=== PATIENT | female | born 1935 | race Caucasian/White ===

== ENCOUNTER 2017-10-14 16:29 | Emergency (ER) | payer MEDICARE, MEDICAID ==
[~2017-10-14] VITALS: Wt 78.0 kg
[~2017-10-14 16:29] MED LIST: ADVAIR 250/501 EA INH; ALTOPREV20 MG PO; ASPIR-LOW81 MG PO; ATIVAN0.5 MG PO; BREO; CALCIUM CARBONA; CARAFATE1 G1 PO; CIPRO500 MG PO; CLONAZEPAM0.5 MG PO; COUMADIN0.5 M1 PO; COUMADIN3 M1 PO; Coumadin7.5 MG PO; DIAMOX125 MG PO; DULCOLAX10 MG PO; DULCOLAX5 MG PO; Duoneb 3ML 3 MG/3 ML INH; FLAGYL250 MG PO; FLORASTOR250 MG PO; FOSAMAX70 MG PO; K-Dur 20MEQ20 MEQ PO; LASIX40 MG PO; LISINOPRIL2.5 MG PO; Lopressor25 MG PO; METOPROLOL1 MG/ML IV; MILLIPRED5 MG PO; MIRALAX17 GM/DOSE PO; MOM30 M1 PO; MUCINEX600 MG PO; NIFEREX FORTE PO; NITROSTAT0.4 MG SL; PLAVIX75 MG PO; POTASSIUM20 MEQ PO; PROPAFENONE HC150 MG PO; PROPAFENONE HY150 MG PO; PROTONIX40 MG PO; SIMVASTATIN20 MG PO; SYNTHROID,LEVO50 MCG PO; SYNTHROID0.075 MG PO; TOPROL XL25 MG PO; TYLENOL500 MG PO; VANCOMYCIN250 MG/2.5 PO; VENTOLIN H0.09 MG/AC INH; VITAMIN D1000 IU PO; VITAMIN D31000 IU PO; WARFARIN SOD5 MG PO
[2017-10-14 17:42] LABS: BASO % 0.3 % (0.0-1.0); EOS # 0.1 10*3/uL (0.0-0.4); EOS % 1.6 % (1.0-4.0); HEMATOCRIT 32.1 % (37.0-47.0); LYMPH # 1.1 10*3/uL (1.3-4.4); LYMPH % 15.4 % (27.0-41.0); MEAN CELL VOLUME 94.7 fl (81.0-99.0); MEAN CORPUSCULAR HGB 26.5 pg (27.0-31.0); MEAN PLATELET VOLUME 9.5 fl (9.6-12.3); MONO # 0.6 10*3/uL (0.1-1.0); MONO % 8.7 % (3.0-9.0); NEUT # 5.1 10*3/uL (2.3-7.9); NEUT % 73.3 % (47.0-73.0); PLATELET COUNT AUTOMATED 257 10*3/uL (130-400); RED BLOOD COUNT 3.39 10*6/uL (4.10-5.10); RED CELL DISTRI WIDTH 14.7 % (0-14.5); WHITE BLOOD COUNT 6.9 10*3/uL (4.8-10.8)
[2017-10-14] MEDS ORDERED: WARFARIN SODIU2.5 MG PO (17:50)
[2017-10-14] MEDS ORDERED: WARFARIN SOD5 MG PO (17:50)
[2017-10-14 17:56] LABS: INTERNATIONAL NORM RATIO 2.1 (2.0-3.5)
[2017-10-14 17:58] LABS: ALBUMIN 3.1 gm/dl (3.1-4.5); ALKALINE PHOSPHATASE 72 U/L (45-117); BUN 17 mg/dl (7-24); CHLORIDE 105 mmol/L (98-107); CREATININE 0.58 mg/dL (0.55-1.02); POTASSIUM 4.4 mmol/L (3.5-5.1); SGOT/AST 11 IU/L (3-35); SGPT/ALT 12 U/L (12-78); SODIUM 144 mmol/L (136-145); TOTAL PROTEIN 7.5 gm/dL (6.4-8.2)
[2017-10-14] MEDS ORDERED: OCEAN104 ML NAS (19:08)
[2017-10-14] MEDS ORDERED: Bactroban Oint22 GM T (19:08)
== END 2017-10-14 19:20 | disposition home or self-care (01) ==
LOC: ED 16:29
PROVIDERS: Nurse Practitioner Family
DX: R04.0 Epistaxis (principal); Z79.899 Other long term (current) drug therapy; Z79.02 Long term (current) use of antithrombotics/antiplatelets

== ENCOUNTER 2018-08-28 19:28 | Inpatient (IN) | payer OTHER ==
[~2018-08-28] VITALS: Ht 152.4 cm; Wt 65.1 kg
--- NOTE | ~2018-08-28 | EKG ---
[place], [place] ELECTROCARDIOGRAM REPORT NAME: JAMEE MONTALVO UNIT #: [id number] ROOM: 506 DOCTOR: NAKUL DRAFT REPORT BIRTHDATE: [birth year] [facility] Test Date: 2018-08-28 Test Time: 19:41:10 Pat Name: JAMEE MONTALVO Department: Room: 506 Gender: F Greenhouse Or Nursery Transplanter: : 1935 Requested By: JERRY BARROS Order Number: [id number] Reading MD: Vinod Price MD Measurements Intervals [place] Rate: 74 P: 57 CO: 137 QRS: 51 QRSD: 82 T: 150 QT: 363 QTc: 403 Interpretive Statements Sinus rhythm Atrial premature complex Borderline repolarization abnormality Electronically Signed On 08-29-2018 14:47:08 PDT by Vinod Price MD CM:EKGRPT:ELECTROCARDIOGRAM REPORT [id number] JERRY MOTA DRAFT REPORT JERRY BARROS
--- NOTE | ~2018-08-28 | EKG ---
[place], [place] ELECTROCARDIOGRAM REPORT NAME: JAMEE MONTALVO UNIT #: [id number] ROOM: 506 DOCTOR: EPIPHANY DRAFT REPORT BIRTHDATE: [birth year] [facility] Test Date: 2018-08-30 Test Time: 14:24:15 Pat Name: JAMEE MONTALVO Department: Room: 506 1 Gender: F Appeals Assistant: : 1935 Requested By: ALEJANDRINA NEVAREZ Order Number: [id number] Reading MD: Alejandrina Nevarez MD Measurements Intervals [place] Rate: 68 P: 76 MI: 127 QRS: 41 QRSD: 91 T: 84 QT: 321 QTc: 342 Interpretive Statements Sinus rhythm Probable left atrial enlargement Nonspecific repol abnormality, lateral leads Compared to ECG 08/28/2018 19:41:10 Atrial premature complex(es) no longer present Electronically Signed On 08-30-2018 15:28:30 PDT by Alejandrina Nevarez MD CM:EKGRPT:ELECTROCARDIOGRAM REPORT [id number] ALEJANDRINA NEVAREZ MD EPIPHANY DRAFT REPORT ALEJANDRINA NEVAREZ MD
[~2018-08-28 19:28] MED LIST changes: +Bactroban Oint22 GM T; +OCEAN104 ML NAS; +WARFARIN SODIU2.5 MG PO
[2018-08-28 19:37] VITALS: BP 134/90
[2018-08-28 19:57] LABS: BASO % 0.2 % (0.0-1.0); EOS # 0.1 10*3/uL (0.0-0.4); EOS % 0.5 % (1.0-4.0); HEMATOCRIT 30.7 % (37.0-47.0); HEMOGLOBIN 8.7 g/dl (12.0-16.0); LYMPH # 1.1 10*3/uL (1.3-4.4); LYMPH % 9.5 % (27.0-41.0); MEAN CELL VOLUME 90.8 fl (81.0-99.0); MEAN CORPUSCULAR HGB 25.7 pg (27.0-31.0); MEAN CORPUSCULAR HGB CONC 28.3 g/dl (33.0-37.0); MEAN PLATELET VOLUME 11.2 fl (9.6-12.3); MONO # 0.7 10*3/uL (0.1-1.0); MONO % 5.8 % (3.0-9.0); NEUT # 9.5 10*3/uL (2.3-7.9); NEUT % 83.5 % (47.0-73.0); PLATELET COUNT AUTOMATED 274 10*3/uL (130-400); RED BLOOD COUNT 3.38 10*6/uL (4.10-5.10); RED CELL DISTRI WIDTH 15.2 % (0-14.5); WHITE BLOOD COUNT 11.4 10*3/uL (4.8-10.8)
[2018-08-28 20:36] LABS: ACT PARTIAL THROMBO TIME 30.1 SECONDS (20.0-32.1); INTERNATIONAL NORM RATIO 0.9 (2.0-3.5)
[2018-08-28 20:42] LABS: ALBUMIN 2.8 gm/dl (3.1-4.5); ALKALINE PHOSPHATASE 76 U/L (45-117); BUN 15 mg/dl (7-24); CHLORIDE 103 mmol/L (98-107); CREATININE 0.96 mg/dL (0.55-1.02); LIPASE 185 U/L (73-393); POTASSIUM 3.6 mmol/L (3.5-5.1); SGOT/AST 7 IU/L (3-35); SGPT/ALT 7 U/L (12-78); SODIUM 141 mmol/L (136-145); TOTAL PROTEIN 7.2 gm/dL (6.4-8.2)
[2018-08-28 20:43] LABS: TROPONIN I < 0.015 ng/ml (<0.045)
[2018-08-28 21:01] VITALS: BP 120/50
--- NOTE | 2018-08-28 21:18 | NUR ---
PT RESTING COMFORTABLY WITH FAMILY AT BEDSIDE.NO SIGNS DISTRESS NOTED.PT STATES FEELS BETTER AFTER BREATHING TX.02 SAT 97%3L NC.
[2018-08-28] MEDS ORDERED: ALENDRONATE SOD70 M1 PO (22:57)
[2018-08-28] MEDS ORDERED: XARE20MG PO (22:58)
[2018-08-28] MEDS ORDERED: LISINOPRIL20 MG PO (22:58)
[2018-08-28] MEDS ORDERED: DILTIAZEM 24HR120 MG PO (22:58)
[2018-08-28] MEDS ORDERED: LEVOTHYROXINE125 MCG PO (22:58)
[2018-08-28] MEDS ORDERED: SERTRALINE HYDR50 MG PO (22:59)
[2018-08-28] MEDS ORDERED: SLOW RELEASE I142 MG PO (22:59)
[2018-08-28] MEDS ORDERED: ADV 100/50 INH (23:00)
[2018-08-28] MEDS ORDERED: LASIX40 MG PO (23:00)
[2018-08-29] VITALS: BP 131/62
--- NOTE | 2018-08-29 00:05 | NUR ---
ROOM ASSIGNMENT OBTAINED FROM LEVERS LACE MACHINE OPERATOR.
--- NOTE | 2018-08-29 00:06 | NUR ---
AWAITING TAKING PT TO FLOOR UPON RETURN OF ER NURSE WHO IS ON THE FLOOR TRANSPORTING A PT.
[2018-08-29 00:30] VITALS: BP 149/85
--- NOTE | 2018-08-29 00:30 | NUR ---
A 82, admitted to 5E, under the services of ESDRAS Mullins MD with a diagnosis of COPD EXACERBATION. Chief complaint is SOB. Patient arrived via bed from ER. Monitor applied. Initial assessment completed. Vital signs taken and recorded. ESDRAS MULLINS MD notified of admission to the unit. Orders received. See assessment for past medical history, medications and allergies. Patient oriented to unit. Clothing/patient valuable form completed. [place]
--- NOTE | 2018-08-29 01:30 | NUR ---
PT. REQUESTING SOMETHING TO EAT. TOOK PATIENT A BOX LUNCH. PT. VOICES NO C/O AT THIS TIME. CALL LIGHT WITHIN REACH.
--- NOTE | 2018-08-29 06:00 | NUR ---
RESTING IN BED WITH EYES CLOSED. CALL LIGHT WITHIN REACH.
[2018-08-29 06:55] LABS: FREE T4 1.46 ng/dl (0.76-1.46); THYROID STIM HORMONE (HS) 1.22 uIU/ml (0.358-4.75)
[2018-08-29 07:31] LABS: VITAMIN D, 25-HYDROXY 46.5 ng/mL (30-100)
[2018-08-29 08:00] VITALS: BP 148/70
--- NOTE | 2018-08-29 08:30 | NUR ---
Alert and oriented x3. Lungs diminished with faint exp wheezes noted posteriorly. Harsh moist cough noted pt states it is productive at times. Denies chest pain. Sob reported with exertion, o2 dependent pt is on 3l currently here.
--- NOTE | 2018-08-29 09:00 | NUR ---
Claim Specialist in to talk to patient. Patient states lives at home with her son. There is a ramp. There are 0 steps in the home. Physician: Dr. Crockett [facility]: [facility]: has had in the past but not currently and doesn't remember the name of the company Patient's level of ADLs: MINIMAL ASSIST Patient has working utilities: yes DME: BSC, walker, cane, shower chair, O2 @ 4L nc, portable O2 tanks, nebulizer, O2 supplier [facility] Follow-up physician's appointment after d/c: she prefers to make her own follow up appt after discharge Does patient want to access PORTAL?: no Discharge plan discussed with patient. She lives at home with her son. She is independent in her ADLs and uses a walker or a cane for ambulation. Discussed home health care services and she denies any home needs at this time. When medically stable she will be discharged to home. Daughter will transport on discharge. NORMAN AMARAL
[2018-08-29 12:00] VITALS: BP 124/58
[2018-08-29 16:00] VITALS: BP 142/81
[2018-08-29 20:00] VITALS: BP 131/62
--- NOTE | 2018-08-29 20:15 | NUR ---
PT SITTING UP IN BED. RESP-EASY AND REGULAR. OXYGEN IN USE. C/O BILATERAL HAND PAIN, RATE CORIE 4 OR 5 ON PAIN SCALE 0-10. MEDICATED TYLENOL TWO TAB PO PER PRN ORDER, SEE EMAR. CALL LIGHT IN REACH. SEE SHIFT ASSESSMENT.
--- NOTE | 2018-08-29 22:00 | NUR ---
TOLERATED ROUTINE IV MEDICATION. NO C/O AT THIS TIME. STATES PAIN MEDICATION HELPED. CALL LIGHT IN REACH.
[2018-08-30] VITALS: BP 122/51
--- NOTE | 2018-08-30 00:10 | NUR ---
SLEEPING IN BED ON RIGHT SIDE, AWAKENS EASILY. RESP-EASY AND REGULAR. OXYGEN IN USE. NO C/O AT THIS TIME. CALL LIGHT IN REACH. SEE SHIFT ASSESSMENT.
--- NOTE | 2018-08-30 04:00 | NUR ---
SLEEPING IN BED. RESP-EASY AND REGULAR. OXYGEN IN USE. CALL LIGHT IN REACH.
--- NOTE | 2018-08-30 06:00 | NUR ---
SLEEPING IN BED. RESP-EASY AND REGULAR. OXYGEN IN USE. CALL LIGHT IN REACH.
[2018-08-30 06:56] LABS: BASO % 0.1 % (0.0-1.0); HEMATOCRIT 27.6 % (37.0-47.0); HEMOGLOBIN 7.7 g/dl (12.0-16.0); LYMPH # 0.7 10*3/uL (1.3-4.4); LYMPH % 5.9 % (27.0-41.0); MEAN CELL VOLUME 90.5 fl (81.0-99.0); MEAN CORPUSCULAR HGB 25.2 pg (27.0-31.0); MEAN CORPUSCULAR HGB CONC 27.9 g/dl (33.0-37.0); MEAN PLATELET VOLUME 9.8 fl (9.6-12.3); MONO # 0.5 10*3/uL (0.1-1.0); MONO % 3.9 % (3.0-9.0); NEUT # 10.3 10*3/uL (2.3-7.9); NEUT % 89.3 % (47.0-73.0); PLATELET COUNT AUTOMATED 345 10*3/uL (130-400); RED BLOOD COUNT 3.05 10*6/uL (4.10-5.10); RED CELL DISTRI WIDTH 14.7 % (0-14.5); WHITE BLOOD COUNT 11.5 10*3/uL (4.8-10.8)
[2018-08-30 07:30] LABS: CHLORIDE 104 mmol/L (98-107); POTASSIUM 4.2 mmol/L (3.5-5.1); SODIUM 141 mmol/L (136-145)
[2018-08-30 07:41] LABS: ALBUMIN 2.6 gm/dl (3.1-4.5); ALKALINE PHOSPHATASE 67 U/L (45-117); BUN 19 mg/dl (7-24); SGOT/AST 8 IU/L (3-35); TOTAL PROTEIN 6.6 gm/dL (6.4-8.2)
[2018-08-30 07:43] LABS: SGPT/ALT < 6 U/L (12-78)
[2018-08-30 08:00] VITALS: BP 140/80
--- NOTE | 2018-08-30 08:18 | NUR ---
24 HR CHART CHECK COMPLETE
[2018-08-30 12:00] VITALS: BP 143/80
--- NOTE | 2018-08-30 13:33 | NUR ---
PT NOW AFIB PER STOKER INSTALLATION MECHANIC. PT DOES HAVE HISTORY OF AFIB. DR SHARP NOTIFIED. ORDERS RECEIVED
--- NOTE | 2018-08-30 13:35 | NUR ---
I SPOKE TO PT AND ASKED WHO HER QUILT STUFFER IS. SHE STATED SHE "WANTS TO SEE DR SPAULDING."
--- NOTE | 2018-08-30 13:50 | NUR ---
CALLED [facility] ANSWERING SERVICE REGARDING NEW PT CONSULT. WAITING PAINTING AND COATING WORKER BACK
--- NOTE | 2018-08-30 14:13 | NUR ---
DR NEVAREZ IN TO SEE PT. ORDERS RECEIVED
--- NOTE | 2018-08-30 14:45 | NUR ---
PT NOW IN SINUS RHYTHM. PER DR NEVAREZ HOLD DIGOXIN. ADMINISTER IF PT GOES BACK INTO AFIB.
[2018-08-30 16:00] VITALS: BP 142/56
[2018-08-30 20:00] VITALS: BP 148/64
--- NOTE | 2018-08-30 23:26 | NUR ---
CALLED TO PTs ROOM FOR C/O NELSON AND ARTHRITIC HAND PAIN. TYLENOL GIVEN. SEE MAR. WILL MONITOR. CALL LIGHT IN REACH.
[2018-08-31] VITALS: BP 142/75
--- NOTE | 2018-08-31 01:36 | NUR ---
SLEEPING. TYLENOL SEEMS TO BE EFFECTIVE FOR COMPLAINTS. NO SXS OF DISTRESS. RESPERS EASY/REGULAR ON 3L NC. CALL LIGHT IN REACH.
--- NOTE | 2018-08-31 04:18 | NUR ---
24 HR CHART CHECK COMPLETED
[2018-08-31 06:57] LABS: BASO % 0.1 % (0.0-1.0); HEMATOCRIT 30.8 % (37.0-47.0); HEMOGLOBIN 8.5 g/dl (12.0-16.0); LYMPH # 0.8 10*3/uL (1.3-4.4); LYMPH % 6.4 % (27.0-41.0); MEAN CELL VOLUME 91.4 fl (81.0-99.0); MEAN CORPUSCULAR HGB 25.2 pg (27.0-31.0); MEAN CORPUSCULAR HGB CONC 27.6 g/dl (33.0-37.0); MEAN PLATELET VOLUME 9.7 fl (9.6-12.3); MONO # 0.5 10*3/uL (0.1-1.0); MONO % 3.8 % (3.0-9.0); NEUT # 10.7 10*3/uL (2.3-7.9); NEUT % 87.3 % (47.0-73.0); PLATELET COUNT AUTOMATED 416 10*3/uL (130-400); RED BLOOD COUNT 3.37 10*6/uL (4.10-5.10); RED CELL DISTRI WIDTH 14.8 % (0-14.5); WHITE BLOOD COUNT 12.2 10*3/uL (4.8-10.8)
[2018-08-31 07:23] LABS: CHLORIDE 102 mmol/L (98-107); POTASSIUM 4.5 mmol/L (3.5-5.1); SODIUM 140 mmol/L (136-145)
[2018-08-31 07:27] LABS: BUN 27 mg/dl (7-24); CREATININE 0.71 mg/dL (0.55-1.02)
[2018-08-31 08:00] VITALS: BP 138/70
--- NOTE | 2018-08-31 10:05 | NUR ---
PT MEDICATED WITH PRN TYLENOL FOR C/O A HEADACHE AND ARTHRITIC PAIN IN HER HANDS. WILL MONITOR.
--- NOTE | 2018-08-31 11:05 | NUR ---
PRN TYLENOL EFFECTIVE PER PT.
[2018-08-31 12:00] VITALS: BP 151/73
[2018-08-31 16:00] VITALS: BP 134/62
[2018-08-31 20:00] VITALS: BP 132/56
--- NOTE | 2018-08-31 20:10 | NUR ---
PT SITTING UP IN BED. RESP-EASY AND REGULAR. NO C/O AT THIS TIME. OXYGEN IN USE. CALL LIGHT IN REACH. SEE SHIFT ASSESSMENT.
[2018-09-01] VITALS: BP 158/78
--- NOTE | 2018-09-01 00:20 | NUR ---
PT RESTING IN BED WITH EYES CLOSED. RESP-EASY AND REGULAR. OXYGEN IN USE. CALL LIGHT IN REACH. SEE SHIFT ASSESSMENT.
--- NOTE | 2018-09-01 06:00 | NUR ---
RESTING IN BED. NO C/O AT THIS TIME. OXYGEN IN USE. CALL LIGHT IN REACH.
[2018-09-01 06:57] LABS: BASO % 0.1 % (0.0-1.0); HEMATOCRIT 28.9 % (37.0-47.0); HEMOGLOBIN 8.1 g/dl (12.0-16.0); LYMPH # 0.5 10*3/uL (1.3-4.4); LYMPH % 5.9 % (27.0-41.0); MEAN CELL VOLUME 90.9 fl (81.0-99.0); MEAN CORPUSCULAR HGB 25.5 pg (27.0-31.0); MEAN PLATELET VOLUME 9.9 fl (9.6-12.3); MONO # 0.3 10*3/uL (0.1-1.0); MONO % 3.8 % (3.0-9.0); NEUT # 7.4 10*3/uL (2.3-7.9); NEUT % 87.4 % (47.0-73.0); PLATELET COUNT AUTOMATED 346 10*3/uL (130-400); RED BLOOD COUNT 3.18 10*6/uL (4.10-5.10); RED CELL DISTRI WIDTH 14.8 % (0-14.5); WHITE BLOOD COUNT 8.5 10*3/uL (4.8-10.8)
[2018-09-01 07:15] LABS: BUN 26 mg/dl (7-24); CHLORIDE 103 mmol/L (98-107); CREATININE 0.64 mg/dL (0.55-1.02); PHOSPHOROUS 2.7 mg/dL (2.5-4.9); POTASSIUM 4.3 mmol/L (3.5-5.1); SODIUM 141 mmol/L (136-145)
--- NOTE | 2018-09-01 09:00 | NUR ---
Fireproof Door Assembler in to see patient. No new needs or request at this time. She denies any home needs at this time. When medically stable she will be discharged to home.
[2018-09-01 12:55] VITALS: BP 154/66
[2018-09-01 16:00] VITALS: BP 153/66
[2018-09-01 20:00] VITALS: BP 154/70
--- NOTE | 2018-09-01 21:00 | NUR ---
PT SITTING UP IN BED. RESP-EASY AND REGULAR. OXYGEN IN USE. NO C/O AT THIS TIME. CALL LIGHT IN REACH. SEE SHIFT ASSESSMENT.
--- NOTE | 2018-09-01 22:40 | NUR ---
PT AMBULATORY TO BATHROOM AND BACK TO BED. C/O HEADACHE RATES PAIN 5 ON PAIN SCALE 0-10. MEDICATED WITH TYLENOL PO PER PRN ORDER, SEE EMAR. CALL LIGHT IN REACH.
--- NOTE | 2018-09-01 22:40 | NUR ---
MEDICATED WITH TYLENOL PO PER PRN ORDER, SEE EMAR. FOR C/O HEADACHE, RATES PAIN 5 ON PAIN SCALE 0-10. CALL LIGHT IN REACH.
[2018-09-02] VITALS: BP 152/72
--- NOTE | 2018-09-02 00:15 | NUR ---
PT RESTING IN BED. RESP-EASY AND REGULAR. OXYGEN IN USE. CALL LIGHT IN REACH. SEE SHIFT ASSESSMENT.
--- NOTE | 2018-09-02 00:20 | NUR ---
RESTING IN BED. RESP-EASY AND REGULAR. NO C/O AT THIS TIME. CALL LIGHT IN REACH. SEE SHIFT ASSESSMENT.
--- NOTE | 2018-09-02 06:00 | NUR ---
SLEEPING IN BED. RESP-EASY AND REGULAR. CALL LIGHT IN REACH.
[2018-09-02 06:41] LABS: HEMATOCRIT 28.5 % (37.0-47.0); HEMOGLOBIN 8.1 g/dl (12.0-16.0); MEAN CELL VOLUME 90.5 fl (81.0-99.0); MEAN CORPUSCULAR HGB 25.7 pg (27.0-31.0); MEAN CORPUSCULAR HGB CONC 28.4 g/dl (33.0-37.0); MEAN PLATELET VOLUME 9.8 fl (9.6-12.3); NUCLEATED RED BLOOD CELL 0.2 % (0.0-0.0); PLATELET COUNT AUTOMATED 326 10*3/uL (130-400); RED BLOOD COUNT 3.15 10*6/uL (4.10-5.10); WHITE BLOOD COUNT 8.5 10*3/uL (4.8-10.8)
[2018-09-02 07:02] LABS: BUN 27 mg/dl (7-24); CHLORIDE 102 mmol/L (98-107); CREATININE 0.61 mg/dL (0.55-1.02); POTASSIUM 4.5 mmol/L (3.5-5.1); SODIUM 140 mmol/L (136-145)
[2018-09-02 07:14] LABS: TOTAL CELLS COUNTED 100 #CELLS
[2018-09-02 07:15] LABS: PLATELET SUFFICIENCY NORMAL (NORMAL); POLYCHROMASIA SLIGHT; SCHISTOCYTES FEW
[2018-09-02 08:00] VITALS: BP 162/58
--- NOTE | 2018-09-02 09:06 | NUR ---
PT RESTING IN BED/ NO DISTRESS NOTED. WILL MONITOR
[2018-09-02 12:00] VITALS: BP 154/59
--- NOTE | 2018-09-02 18:18 | NUR ---
DR. BERGER NOTIFIED OF MANUAL BP OF 176/72. PT'S HR IS 68 AT THIS TIME. ORDERS FOR 10MG IV HYDRALAZINE RECIEVED. WILL CONTINUE TO MONITOR AND REASSESS PT
[2018-09-02 18:20] VITALS: BP 176/72
[2018-09-02 19:22] VITALS: BP 154/70
[2018-09-02 20:00] VITALS: BP 184/60
--- NOTE | 2018-09-02 22:24 | NUR ---
DR. FISHER NOTIFIED OF BLOOD PRESSURE OF 178/68. WILL RECHECK BP AT MIDNIGHT ORDERED BY . NO OTHER ORDERS AT THIS TIME.
--- NOTE | 2018-09-02 23:18 | NUR ---
24 HR chart check completed.
[2018-09-03] VITALS (7 sets, daily range): BP systolic 124–182; BP diastolic 55–82
--- NOTE | 2018-09-03 06:01 | NUR ---
DR. CINTRON NOTIFIED OF REPEAT BLOOD PRESSURE OF 148/60. NO NEW ORDERS AT THIS TIME.
[2018-09-03 06:34] LABS: HEMATOCRIT 30.8 % (37.0-47.0); HEMOGLOBIN 8.6 g/dl (12.0-16.0); MEAN CELL VOLUME 90.3 fl (81.0-99.0); MEAN CORPUSCULAR HGB 25.2 pg (27.0-31.0); MEAN CORPUSCULAR HGB CONC 27.9 g/dl (33.0-37.0); MEAN PLATELET VOLUME 9.8 fl (9.6-12.3); NUCLEATED RED BLOOD CELL 0.1 10*3/uL (0.0-0.0); NUCLEATED RED BLOOD CELL 0.5 % (0.0-0.0); PLATELET COUNT AUTOMATED 378 10*3/uL (130-400); RED BLOOD COUNT 3.41 10*6/uL (4.10-5.10); RED CELL DISTRI WIDTH 15.1 % (0-14.5); WHITE BLOOD COUNT 10.6 10*3/uL (4.8-10.8)
[2018-09-03 06:41] LABS: BUN 24 mg/dl (7-24); CHLORIDE 103 mmol/L (98-107); POTASSIUM 4.7 mmol/L (3.5-5.1); SODIUM 141 mmol/L (136-145)
[2018-09-03 07:25] LABS: PLATELET SUFFICIENCY NORMAL (NORMAL); POLYCHROMASIA SLIGHT; TOTAL CELLS COUNTED 100 #CELLS
--- NOTE | 2018-09-03 20:00 | NUR ---
AAOX3 SITTING UP IN BED. 02 INTACT; PT. VOICES NO C/O AT THIS TIME. NO DISTRESS NOTED. CALL LIGHT WITHIN REACH.
--- NOTE | 2018-09-03 21:30 | NUR ---
UP TO BATHROOM INDEPENDENTLY WITH 02 INTACT. PT. VERY DYSPNIC WITH EXERTION. BACK TO BED; 02 REMAINS INTACT. WILL CONTINUE TO MONITOR. CALL LIGHT WITHIN REACH.
[2018-09-04] VITALS: BP 133/66
--- NOTE | 2018-09-04 04:00 | NUR ---
RESTING IN BED WITH EYES CLOSED. CALL LIGHT WITHIN REACH.
[2018-09-04 06:27] LABS: HEMATOCRIT 28.9 % (37.0-47.0); HEMOGLOBIN 8.1 g/dl (12.0-16.0); MEAN CELL VOLUME 90.3 fl (81.0-99.0); MEAN CORPUSCULAR HGB 25.3 pg (27.0-31.0); MEAN PLATELET VOLUME 9.8 fl (9.6-12.3); NUCLEATED RED BLOOD CELL 0.1 % (0.0-0.0); PLATELET COUNT AUTOMATED 373 10*3/uL (130-400); RED CELL DISTRI WIDTH 15.5 % (0-14.5); WHITE BLOOD COUNT 13.7 10*3/uL (4.8-10.8)
[2018-09-04 07:13] LABS: PLATELET SUFFICIENCY NORMAL (NORMAL); TOTAL CELLS COUNTED 100 #CELLS
[2018-09-04 07:14] LABS: POLYCHROMASIA SLIGHT
--- NOTE | 2018-09-04 07:30 | NUR ---
ASSUMED CARE FOR PT FROM DECK CADET RN. PT IS RESTING IN BED AT THIS TIME AND DENIES ANY NEEDS. BED LOCKED AND IN THE LOWEST POSITION, CALL LIGHT WITHIN REACH. WILL CONTINUE TO MONITOR PT.
[2018-09-04 09:50] VITALS: BP 134/58
--- NOTE | 2018-09-04 10:52 | NUR ---
Occupational Therapy evaluation completed on the 5th floor with full eval to follow. Low complexity level. Eval only. Precautions: IV site, o2 dependent. Patient reports living at home with son. Independent with ADLs. Recommend return home with son. Thank you for this referral, Celine Taylor OTR/L
--- NOTE | 2018-09-04 11:00 | NUR ---
PHYSICAL THERAPY Patient evaluated on 5, full evaluation to follow. D/C PT after evaluation, patient is (I) with functional mobility- patient agrees. MAy require home health RN for home. PAtient is low complexity via chart review, tests and evaluation: [id number]. Thank you for this referral. Zohra Nugent,PT
[2018-09-04 12:00] VITALS: BP 135/54
[2018-09-04 16:00] VITALS: BP 157/56
[2018-09-04 17:01] VITALS: BP 150/58
--- NOTE | 2018-09-04 19:42 | NUR ---
24 HOUR CHART CHECK COMPLETE.
[2018-09-04 20:00] VITALS: BP 130/56; BP 135/48
[2018-09-05] VITALS: BP 160/59
--- NOTE | 2018-09-05 02:30 | NUR ---
24 HR chart check completed.
[2018-09-05 08:00] VITALS: BP 140/68
--- NOTE | 2018-09-05 09:00 | NUR ---
Gr[employer] 1 Th[employer] 6 Visiting Teacher in to see patient. No new needs or request at this time. She denies any home needs at this time. When medically stable she will be discharged to home.
[2018-09-05 12:00] VITALS: BP 152/58
[2018-09-05] MEDS ORDERED: FEOSOL325 MG PO (13:11)
--- NOTE | 2018-09-05 15:20 | NUR ---
Discharge instructions reviewed with patient/family. Patient receptive and verbalizes understanding. Follow-up care arranged. Written instructions given to patient/family. LOUIS JOSHI
== END 2018-09-05 15:37 | disposition home or self-care (01) | DRG 190 ==
LOC: ED 19:28 → 5E 22:18 → EDHOLD 22:18 → 5E 23:58
PROVIDERS: Family Medicine; Internal Medicine; Internal Medicine Nephrology; Nurse Practitioner Family; ADMIT Internal Medicine
DX: J44.1 Chronic obstructive pulmonary disease with (acute) exacerbation (principal); J18.1 Lobar pneumonia, unspecified organism; K92.2 Gastrointestinal hemorrhage, unspecified; J44.0 Chronic obstructive pulmonary disease with (acute) lower respiratory infection; I10 Essential (primary) hypertension; E03.9 Hypothyroidism, unspecified; D50.9 Iron deficiency anemia, unspecified; R73.9 Hyperglycemia, unspecified; I48.0 Paroxysmal atrial fibrillation; I25.10 Atherosclerotic heart disease of native coronary artery without angina pectoris; D72.829 Elevated white blood cell count, unspecified; R19.7 Diarrhea, unspecified; Z99.81 Dependence on supplemental oxygen; Z79.899 Other long term (current) drug therapy; Z79.01 Long term (current) use of anticoagulants; Z87.01 Personal history of pneumonia (recurrent); Z87.440 Personal history of urinary (tract) infections; Z90.710 Acquired absence of both cervix and uterus; Z80.8 Family history of malignant neoplasm of other organs or systems; Z95.5 Presence of coronary angioplasty implant and graft; Z87.891 Personal history of nicotine dependence; Z92.89 Personal history of other medical treatment

== ENCOUNTER 2018-12-02 15:10 | Emergency (ER) | payer BC, MEDICARE ==
[~2018-12-02] VITALS: Ht 152.4 cm; Wt 68.5 kg
[~2018-12-02 15:10] MED LIST changes: +ADV 100/50 INH; +ALENDRONATE SOD70 M1 PO; +DILTIAZEM 24HR120 MG PO; +FEOSOL325 MG PO; +LEVOTHYROXINE125 MCG PO; +LISINOPRIL20 MG PO; +SERTRALINE HYDR50 MG PO; +SLOW RELEASE I142 MG PO; +XARE20MG PO
[2018-12-02] MEDS ORDERED: CEPHALEXIN500 M1 PO (15:55)
[2018-12-02] MEDS ORDERED: ANTIBIOTIC28.4 GM T (15:55)
[2019-01-05] MEDS ORDERED: PROAIR HFA8.5 GM INH (08:31)
[2019-01-05] MEDS ORDERED: NATURE'S BLEND F1 MG PO (08:35)
[2019-01-05] MEDS ORDERED: WIXELA 250-501 EACH INH (08:35)
== END 2018-12-02 16:06 | disposition home or self-care (01) ==
LOC: ED 15:10
DX: S51.012A Laceration without foreign body of left elbow, initial encounter (principal); J44.9 Chronic obstructive pulmonary disease, unspecified; I25.10 Atherosclerotic heart disease of native coronary artery without angina pectoris; I48.91 Unspecified atrial fibrillation; Z99.81 Dependence on supplemental oxygen; Z79.899 Other long term (current) drug therapy; Z87.891 Personal history of nicotine dependence; W01.0XXA Fall on same level from slipping, tripping and stumbling without subsequent striking against object, initial encounter; Y93.89 Activity, other specified; Y92.89 Other specified places as the place of occurrence of the external cause; Y99.8 Other external cause status

== ENCOUNTER 2021-01-04 15:31 | Inpatient (IN) | payer OTHER ==
[~2021-01-04] VITALS: Ht 177.8 cm; Wt 59.0 kg
[~2021-01-04 15:31] MED LIST changes: +ANTIBIOTIC28.4 GM T; +CEPHALEXIN500 M1 PO; +NATURE'S BLEND F1 MG PO; +PROAIR HFA8.5 GM INH; +WIXELA 250-501 EACH INH
[2021-01-04 15:39] VITALS: BP 156/99
[2021-01-04 16:57] LABS: BASO % 0.4 % (0.0-1.0); EOS % 0.6 % (1.0-4.0); HEMATOCRIT 27.5 % (37.0-47.0); LYMPH # 0.7 10*3/uL (1.3-4.4); LYMPH % 12.6 % (27.0-41.0); MEAN CELL VOLUME 92.6 fl (81.0-99.0); MEAN CORPUSCULAR HGB 23.6 pg (27.0-31.0); MEAN CORPUSCULAR HGB CONC 25.5 g/dl (33.0-37.0); MEAN PLATELET VOLUME 10.5 fl (9.6-12.3); MONO # 0.7 10*3/uL (0.1-1.0); MONO % 12.8 % (3.0-9.0); NEUT # 3.9 10*3/uL (2.3-7.9); NEUT % 72.7 % (47.0-73.0); PLATELET COUNT AUTOMATED 221 10*3/uL (130-400); RED BLOOD COUNT 2.97 10*6/uL (4.10-5.10); RED CELL DISTRI WIDTH 15.5 % (0-14.5); WHITE BLOOD COUNT 5.4 10*3/uL (4.8-10.8)
[2021-01-04 17:12] LABS: ALBUMIN 2.8 gm/dl (3.1-4.5); ALKALINE PHOSPHATASE 78 U/L (45-117); BUN 21 mg/dl (7-24); CHLORIDE 94 mmol/L (98-107); CREATININE 0.54 mg/dL (0.55-1.02); POTASSIUM 4.7 mmol/L (3.5-5.1); SGOT/AST 13 IU/L (3-35); SGPT/ALT 11 U/L (12-78); SODIUM 140 mmol/L (136-145); TOTAL PROTEIN 7.4 gm/dL (6.4-8.2)
[2021-01-04 17:21] LABS: TROPONIN I < 0.015 ng/ml (<0.045)
[2021-01-04 17:48] LABS: IRON 19 ug/dL (50-170); TOTAL IRON BINDING CAPACITY 325 ug/dl (250-450)
[2021-01-04 19:34] VITALS: BP 133/48
[2021-01-04 22:10] LABS: BILIRUBIN Negative (Negative); BLOOD Negative (Negative); CLARITY Clear (Clear); COLOR Yellow (Yellow); GLUCOSE Negative (Negative); KETONE Negative (Negative); LEUKO ESTERASE Negative (Negative); NITRITE Negative (Negative); UROBILINOGEN 0.2 E.U./dl (0.0-1.0)
[2021-01-05 05:59] LABS: ALBUMIN 2.8 gm/dl (3.1-4.5); BUN 17 mg/dl (7-24); CHLORIDE 96 mmol/L (98-107); CREATININE 0.55 mg/dL (0.55-1.02); POTASSIUM 4.7 mmol/L (3.5-5.1); SGOT/AST 16 IU/L (3-35); SGPT/ALT 13 U/L (12-78); SODIUM 137 mmol/L (136-145); TOTAL PROTEIN 7.6 gm/dL (6.4-8.2)
[2021-01-05 06:00] LABS: ALKALINE PHOSPHATASE 80 U/L (45-117)
[2021-01-05 06:13] LABS: HEMATOCRIT 28.1 % (37.0-47.0); MEAN CELL VOLUME 90.1 fl (81.0-99.0); MEAN CORPUSCULAR HGB 23.1 pg (27.0-31.0); MEAN CORPUSCULAR HGB CONC 25.6 g/dl (33.0-37.0); MEAN PLATELET VOLUME 11.4 fl (9.6-12.3); PLATELET COUNT AUTOMATED 249 10*3/uL (130-400); RED BLOOD COUNT 3.12 10*6/uL (4.10-5.10); RED CELL DISTRI WIDTH 15.8 % (0-14.5); WHITE BLOOD COUNT 5.3 10*3/uL (4.8-10.8)
[2021-01-05 06:38] LABS: PLATELET SUFFICIENCY NORMAL (NORMAL); POLYCHROMASIA SLIGHT; STOMATOCYTE FEW; TARGET CELLS FEW; TOTAL CELLS COUNTED 100 #CELLS
[2021-01-05 07:09] LABS: ABG BASE EXCESS 14.5 mmol/L (-2.0-2.0); ARTERIAL BLOOD GAS PH 7.413 (7.35-7.45); ARTERIAL BLOOD GAS PO2 105.9 (80-90)
[2021-01-05 08:00] VITALS: BP 121/63
[2021-01-05 10:14] VITALS: BP 133/60
[2021-01-05 15:55] VITALS: BP 154/72
[2021-01-05 23:54] VITALS: BP 143/54
[2021-01-06 06:31] LABS: MEAN CELL VOLUME 88.3 fl (81.0-99.0); MEAN CORPUSCULAR HGB 23.3 pg (27.0-31.0); MEAN CORPUSCULAR HGB CONC 26.4 g/dl (33.0-37.0); MEAN PLATELET VOLUME 10.6 fl (9.6-12.3); PLATELET COUNT AUTOMATED 241 10*3/uL (130-400); RED BLOOD COUNT 3.17 10*6/uL (4.10-5.10); RED CELL DISTRI WIDTH 15.9 % (0-14.5); RETICULOCYTE % 3.39 % (0.50-2.50); WHITE BLOOD COUNT 5.1 10*3/uL (4.8-10.8)
[2021-01-06 06:57] LABS: ACT PARTIAL THROMBO TIME 29.6 SECONDS (20.0-32.1)
[2021-01-06 06:59] LABS: IRON 182 ug/dL (50-170); LDH 152 U/L (84-246); TOTAL IRON BINDING CAPACITY 337 ug/dl (250-450)
[2021-01-06 07:02] LABS: ALBUMIN 2.7 gm/dl (3.1-4.5); ALKALINE PHOSPHATASE 71 U/L (45-117); BUN 15 mg/dl (7-24); CHLORIDE 99 mmol/L (98-107); CHOLESTEROL 135 mg/dL (<200); CREATININE 0.51 mg/dL (0.55-1.02); POTASSIUM 3.8 mmol/L (3.5-5.1); SGOT/AST 16 IU/L (3-35); SGPT/ALT 13 U/L (12-78); SODIUM 141 mmol/L (136-145); TOTAL PROTEIN 7.2 gm/dL (6.4-8.2); TRIGLYCERIDES 83 mg/dl (<150)
[2021-01-06 07:10] LABS: LDL CHOLESTEROL 54 mg/dL (9-159)
[2021-01-06 07:30] LABS: VITAMIN D, 25-HYDROXY 33.5 ng/mL (30-100)
[2021-01-06 08:00] VITALS: BP 137/42
[2021-01-06 08:02] LABS: TOTAL CELLS COUNTED 100 #CELLS
[2021-01-06 08:04] LABS: PLATELET SUFFICIENCY NORMAL (NORMAL); POLYCHROMASIA SLIGHT; SCHISTOCYTES FEW; TARGET CELLS FEW
[2021-01-06 08:05] LABS: STOMATOCYTE FEW
[2021-01-06] MEDS ORDERED: VITAMIN B1250 MCG PO (13:19)
[2021-01-06] MEDS ORDERED: VITAMIN D3125 MC1 PO (13:20)
[2021-01-06] MEDS ORDERED: LASIX40 MG PO (13:21)
[2021-01-06] MEDS ORDERED: GABAPENTIN100 M2 PO (13:21)
[2021-01-07 02:06] LABS: TOTAL PROTEIN, SERUM 6.7 g/dL (6.0-8.5)
[2021-01-09 15:06] LABS: A/G RATIO 0.9 (0.7-1.7); ALBUMIN 3.1 g/dL (2.9-4.4); ALPHA-1-GLOBULIN 0.3 g/dL (0.0-0.4); ALPHA-2-GLOBULIN 0.8 g/dL (0.4-1.0); BETA GLOBULIN 1.1 g/dL (0.7-1.3); GAMMA GLOBULIN 1.4 g/dL (0.4-1.8); GLOBULIN, TOTAL 3.6 g/dL (2.2-3.9); M-SPIKE Comment: g/dL (Not Observed)
== END 2021-01-05 22:54 | DRG 71 ==
LOC: ED 15:31 → 3N 17:37 → EDHOLD 17:37 → 3N 01-05 21:44 → EDHOLD 01-05 22:54
PROVIDERS: Emergency Medicine; Internal Medicine Hematology & Oncology; Psychiatry & Neurology Psychiatry; Student in an Organized Health Care Education/Training Program; ADMIT Internal Medicine; ATTEND Internal Medicine
DX: G93.40 Encephalopathy, unspecified (principal); D62 Acute posthemorrhagic anemia; L40.9 Psoriasis, unspecified; E03.9 Hypothyroidism, unspecified; I10 Essential (primary) hypertension; Z20.822 Contact with and (suspected) exposure to COVID-19; F03.90 Unspecified dementia, unspecified severity, without behavioral disturbance, psychotic disturbance, mood disturbance, and anxiety; F32.A Depression, unspecified; J44.9 Chronic obstructive pulmonary disease, unspecified; Z95.5 Presence of coronary angioplasty implant and graft; Z87.891 Personal history of nicotine dependence; Z79.51 Long term (current) use of inhaled steroids; Z79.899 Other long term (current) drug therapy

== ENCOUNTER 2021-01-05 22:55 | Inpatient (IN) | payer OTHER ==
[~2021-01-05] VITALS: Ht 152.4 cm; Wt 58.1 kg
[2021-01-06] MEDS ORDERED: VITAMIN B1250 MCG PO (13:19)
[2021-01-06] MEDS ORDERED: VITAMIN D3125 MC1 PO (13:20)
[2021-01-06] MEDS ORDERED: LASIX40 MG PO (13:21)
[2021-01-06] MEDS ORDERED: GABAPENTIN100 M2 PO (13:21)
[2021-01-06 15:30] VITALS: BP 143/54
[2021-01-06 20:00] VITALS: BP 127/69
[2021-01-07 08:00] VITALS: BP 144/73
[2021-01-07 20:20] VITALS: BP 114/48
[2021-01-08 08:00] VITALS: BP 117/64
[2021-01-08 20:00] VITALS: BP 111/54
[2021-01-09 07:05] LABS: HEMATOCRIT 25.7 % (37.0-47.0); MEAN CELL VOLUME 94.8 fl (81.0-99.0); MEAN CORPUSCULAR HGB CONC 25.3 g/dl (33.0-37.0); MEAN PLATELET VOLUME 10.7 fl (9.6-12.3); PLATELET COUNT AUTOMATED 178 10*3/uL (130-400); RED BLOOD COUNT 2.71 10*6/uL (4.10-5.10); RED CELL DISTRI WIDTH 16.7 % (0-14.5); WHITE BLOOD COUNT 5.3 10*3/uL (4.8-10.8)
[2021-01-09 08:00] VITALS: BP 112/53
[2021-01-09 08:38] LABS: BASOPHILS 1 % (0-1); TOTAL CELLS COUNTED 100 #CELLS
[2021-01-09 08:39] LABS: PLATELET SUFFICIENCY NORMAL (NORMAL); POLYCHROMASIA SLIGHT
[2021-01-09 08:40] LABS: OVALOCYTES FEW
== END 2021-01-09 18:19 | disposition short-term general hospital (02) | DRG 881 ==
LOC: 3N 22:55
PROVIDERS: Internal Medicine Nephrology; ADMIT Psychiatry & Neurology Psychiatry; ATTEND Psychiatry & Neurology Psychiatry
DX: F32.A Depression, unspecified (principal); J44.9 Chronic obstructive pulmonary disease, unspecified; D50.9 Iron deficiency anemia, unspecified; E03.9 Hypothyroidism, unspecified; L40.9 Psoriasis, unspecified; G31.84 Mild cognitive impairment of uncertain or unknown etiology

== ENCOUNTER 2021-01-09 18:31 | Inpatient (IN) | payer OTHER ==
[~2021-01-09] VITALS: Ht 152.4 cm; Wt 62.1 kg
[~2021-01-09 18:31] MED LIST changes: +GABAPENTIN100 M2 PO; +VITAMIN B1250 MCG PO; +VITAMIN D3125 MC1 PO
[2021-01-09 22:56] VITALS: BP 118/40
[2021-01-09 23:31] VITALS: BP 108/63
[2021-01-10] VITALS (7 sets, daily range): BP systolic 109–134; BP diastolic 32–82
[2021-01-10 06:53] LABS: BASO % 0.2 % (0.0-1.0); EOS # 0.1 10*3/uL (0.0-0.4); EOS % 1.2 % (1.0-4.0); HEMATOCRIT 29.7 % (37.0-47.0); LYMPH # 0.7 10*3/uL (1.3-4.4); LYMPH % 12.6 % (27.0-41.0); MEAN CELL VOLUME 94.6 fl (81.0-99.0); MEAN CORPUSCULAR HGB 24.5 pg (27.0-31.0); MEAN CORPUSCULAR HGB CONC 25.9 g/dl (33.0-37.0); MEAN PLATELET VOLUME 11.1 fl (9.6-12.3); MONO # 0.7 10*3/uL (0.1-1.0); MONO % 12.3 % (3.0-9.0); NEUT # 4.2 10*3/uL (2.3-7.9); NEUT % 72.7 % (47.0-73.0); PLATELET COUNT AUTOMATED 180 10*3/uL (130-400); RED BLOOD COUNT 3.14 10*6/uL (4.10-5.10); RED CELL DISTRI WIDTH 17.2 % (0-14.5); WHITE BLOOD COUNT 5.8 10*3/uL (4.8-10.8)
[2021-01-11] VITALS: BP 127/73
[2021-01-11 07:43] LABS: BASO % 0.4 % (0.0-1.0); EOS % 0.4 % (1.0-4.0); HEMATOCRIT 29.8 % (37.0-47.0); LYMPH # 0.5 10*3/uL (1.3-4.4); LYMPH % 9.5 % (27.0-41.0); MEAN CELL VOLUME 97.4 fl (81.0-99.0); MEAN CORPUSCULAR HGB 24.8 pg (27.0-31.0); MEAN CORPUSCULAR HGB CONC 25.5 g/dl (33.0-37.0); MEAN PLATELET VOLUME 11.3 fl (9.6-12.3); MONO # 0.7 10*3/uL (0.1-1.0); MONO % 12.5 % (3.0-9.0); NEUT # 4.2 10*3/uL (2.3-7.9); NEUT % 76.1 % (47.0-73.0); PLATELET COUNT AUTOMATED 164 10*3/uL (130-400); RED BLOOD COUNT 3.06 10*6/uL (4.10-5.10); RED CELL DISTRI WIDTH 17.5 % (0-14.5); WHITE BLOOD COUNT 5.5 10*3/uL (4.8-10.8)
[2021-01-11 08:00] VITALS: BP 134/54
[2021-01-11 08:09] LABS: CHLORIDE 100 mmol/L (98-107); POTASSIUM 5.2 mmol/L (3.5-5.1); SODIUM 141 mmol/L (136-145)
[2021-01-11 08:18] LABS: BUN 42 mg/dl (7-24); CREATININE 0.64 mg/dL (0.55-1.02)
[2021-01-11 12:00] VITALS: BP 136/68
[2021-01-11 20:00] VITALS: BP 158/57
[2021-01-11 22:00] VITALS: BP 158/57
[2021-01-12] VITALS (7 sets, daily range): BP systolic 104–167; BP diastolic 47–62
[2021-01-12 02:11] LABS: BUN 34 mg/dl (7-24); CHLORIDE 102 mmol/L (98-107); CREATININE 0.48 mg/dL (0.55-1.02); POTASSIUM 5.1 mmol/L (3.5-5.1); SODIUM 143 mmol/L (136-145)
[2021-01-12 06:11] LABS: ALBUMIN 2.3 gm/dl (3.1-4.5); ALKALINE PHOSPHATASE 65 U/L (45-117); BUN 33 mg/dl (7-24); CHLORIDE 101 mmol/L (98-107); CREATININE 0.46 mg/dL (0.55-1.02); POTASSIUM 4.9 mmol/L (3.5-5.1); SGOT/AST 7 IU/L (3-35); SGPT/ALT 12 U/L (12-78); SODIUM 143 mmol/L (136-145); TOTAL PROTEIN 6.1 gm/dL (6.4-8.2)
[2021-01-12 06:13] LABS: BASO % 0.4 % (0.0-1.0); EOS % 0.2 % (1.0-4.0); HEMATOCRIT 28.2 % (37.0-47.0); LYMPH # 0.7 10*3/uL (1.3-4.4); LYMPH % 14.3 % (27.0-41.0); MEAN CELL VOLUME 97.2 fl (81.0-99.0); MEAN CORPUSCULAR HGB 24.8 pg (27.0-31.0); MEAN CORPUSCULAR HGB CONC 25.5 g/dl (33.0-37.0); MONO # 0.7 10*3/uL (0.1-1.0); NEUT # 3.3 10*3/uL (2.3-7.9); NEUT % 69.6 % (47.0-73.0); PLATELET COUNT AUTOMATED 149 10*3/uL (130-400); WHITE BLOOD COUNT 4.7 10*3/uL (4.8-10.8)
[2021-01-12 07:33] LABS: ABG BASE EXCESS 19.5 mmol/L (-2.0-2.0); ARTERIAL BLOOD GAS PO2 98.2 (80-90)
[2021-01-12 07:36] LABS: ARTERIAL BLOOD GAS PH 7.192 (7.35-7.45)
[2021-01-12 10:32] LABS: ABG BASE EXCESS 24.3 mmol/L (-2.0-2.0); ARTERIAL BLOOD GAS PH 7.244 (7.35-7.45); ARTERIAL BLOOD GAS PO2 65.4 (80-90)
[2021-01-12 15:37] LABS: ABG BASE EXCESS 15.4 mmol/L (-2.0-2.0); ARTERIAL BLOOD GAS PH 7.293 (7.35-7.45); ARTERIAL BLOOD GAS PO2 91.6 (80-90)
[2021-01-13] VITALS (11 sets, daily range): BP systolic 112–166; BP diastolic 48–72
[2021-01-13 06:32] LABS: BUN 37 mg/dl (7-24); CHLORIDE 103 mmol/L (98-107); CREATININE 0.44 mg/dL (0.55-1.02); POTASSIUM 4.4 mmol/L (3.5-5.1); SODIUM 146 mmol/L (136-145)
[2021-01-13 08:28] LABS: ABG BASE EXCESS 12.8 mmol/L (-2.0-2.0); ARTERIAL BLOOD GAS PH 7.314 (7.35-7.45); ARTERIAL BLOOD GAS PO2 156.9 (80-90)
[2021-01-13 17:02] LABS: HEMATOCRIT 26.7 % (37.0-47.0); MEAN CELL VOLUME 97.1 fl (81.0-99.0); MEAN CORPUSCULAR HGB 25.1 pg (27.0-31.0); MEAN CORPUSCULAR HGB CONC 25.8 g/dl (33.0-37.0); MEAN PLATELET VOLUME 11.5 fl (9.6-12.3); RED BLOOD COUNT 2.75 10*6/uL (4.10-5.10); RED CELL DISTRI WIDTH 17.3 % (0-14.5); WHITE BLOOD COUNT 5.3 10*3/uL (4.8-10.8)
[2021-01-13 17:04] LABS: PLATELET COUNT AUTOMATED 194 10*3/uL (130-400)
[2021-01-13 17:20] LABS: BUN 36 mg/dl (7-24); CHLORIDE 103 mmol/L (98-107); CREATININE 0.46 mg/dL (0.55-1.02); LDH 101 U/L (84-246); SODIUM 144 mmol/L (136-145)
[2021-01-13 17:27] LABS: TOTAL CELLS COUNTED 100 #CELLS
[2021-01-13 17:29] LABS: PLATELET SUFFICIENCY NORMAL (NORMAL)
[2021-01-14 00:45] VITALS: BP 168/51
[2021-01-14 06:21] LABS: CHLORIDE 105 mmol/L (98-107); SODIUM 143 mmol/L (136-145)
[2021-01-14 06:26] LABS: BASO % 0.2 % (0.0-1.0); LYMPH # 0.4 10*3/uL (1.3-4.4); LYMPH % 5.9 % (27.0-41.0); MEAN CORPUSCULAR HGB 26.1 pg (27.0-31.0); MEAN CORPUSCULAR HGB CONC 26.9 g/dl (33.0-37.0); MEAN PLATELET VOLUME 12.4 fl (9.6-12.3); MONO # 0.4 10*3/uL (0.1-1.0); NEUT # 5.2 10*3/uL (2.3-7.9); NEUT % 85.8 % (47.0-73.0); PLATELET COUNT AUTOMATED 180 10*3/uL (130-400); RED CELL DISTRI WIDTH 16.9 % (0-14.5); WHITE BLOOD COUNT 6.1 10*3/uL (4.8-10.8)
[2021-01-14 06:32] LABS: BUN 37 mg/dl (7-24); CREATININE 0.44 mg/dL (0.55-1.02)
[2021-01-14 06:33] LABS: POTASSIUM 4.7 mmol/L (3.5-5.1)
[2021-01-14 08:00] VITALS: BP 160/54
[2021-01-14 12:00] VITALS: BP 162/54
[2021-01-14 16:00] VITALS: BP 159/64
[2021-01-14 20:00] VITALS: BP 160/74
[2021-01-15] VITALS (10 sets, daily range): BP systolic 113–147; BP diastolic 30–94
[2021-01-15 06:21] LABS: HEMATOCRIT 31.7 % (37.0-47.0); LYMPH # 0.4 10*3/uL (1.3-4.4); LYMPH % 7.5 % (27.0-41.0); MEAN CELL VOLUME 97.5 fl (81.0-99.0); MEAN CORPUSCULAR HGB 25.8 pg (27.0-31.0); MEAN CORPUSCULAR HGB CONC 26.5 g/dl (33.0-37.0); MEAN PLATELET VOLUME 11.1 fl (9.6-12.3); MONO # 0.4 10*3/uL (0.1-1.0); MONO % 7.7 % (3.0-9.0); NEUT # 4.8 10*3/uL (2.3-7.9); NEUT % 84.1 % (47.0-73.0); PLATELET COUNT AUTOMATED 173 10*3/uL (130-400); RED BLOOD COUNT 3.25 10*6/uL (4.10-5.10); RED CELL DISTRI WIDTH 17.2 % (0-14.5); WHITE BLOOD COUNT 5.7 10*3/uL (4.8-10.8)
[2021-01-15 06:40] LABS: BUN 37 mg/dl (7-24); CHLORIDE 106 mmol/L (98-107); CREATININE 0.43 mg/dL (0.55-1.02); LDH 100 U/L (84-246); POTASSIUM 4.4 mmol/L (3.5-5.1); SODIUM 146 mmol/L (136-145)
[2021-01-16] VITALS (11 sets, daily range): BP systolic 95–162; BP diastolic 51–93
[2021-01-16 06:03] LABS: CHLORIDE 103 mmol/L (98-107); POTASSIUM 4.1 mmol/L (3.5-5.1); SODIUM 146 mmol/L (136-145)
[2021-01-16 06:17] LABS: ALBUMIN 2.5 gm/dl (3.1-4.5); ALKALINE PHOSPHATASE 60 U/L (45-117); BUN 33 mg/dl (7-24); CPK 19 U/L (26-192); CREATININE 0.42 mg/dL (0.55-1.02); LDH 101 U/L (84-246); SGOT/AST 9 IU/L (3-35); SGPT/ALT 19 U/L (12-78); TOTAL PROTEIN 6.3 gm/dL (6.4-8.2)
[2021-01-16 06:18] LABS: BASO % 0.1 % (0.0-1.0); LYMPH # 0.4 10*3/uL (1.3-4.4); LYMPH % 5.5 % (27.0-41.0); MEAN CELL VOLUME 96.8 fl (81.0-99.0); MEAN CORPUSCULAR HGB 26.7 pg (27.0-31.0); MEAN CORPUSCULAR HGB CONC 27.6 g/dl (33.0-37.0); MEAN PLATELET VOLUME 11.6 fl (9.6-12.3); MONO # 0.3 10*3/uL (0.1-1.0); MONO % 4.3 % (3.0-9.0); NEUT # 7.1 10*3/uL (2.3-7.9); NEUT % 88.8 % (47.0-73.0); PLATELET COUNT AUTOMATED 233 10*3/uL (130-400); RED BLOOD COUNT 3.41 10*6/uL (4.10-5.10); RED CELL DISTRI WIDTH 17.6 % (0-14.5)
[2021-01-17] VITALS: BP 103/53
[2021-01-17 04:00] VITALS: BP 91/40
[2021-01-17 05:58] LABS: ALBUMIN 2.3 gm/dl (3.1-4.5); ALKALINE PHOSPHATASE 56 U/L (45-117); CHLORIDE 105 mmol/L (98-107); CREATININE 0.48 mg/dL (0.55-1.02); LDH 90 U/L (84-246); POTASSIUM 4.1 mmol/L (3.5-5.1); SGOT/AST 7 IU/L (3-35); SGPT/ALT 20 U/L (12-78); SODIUM 147 mmol/L (136-145); TOTAL PROTEIN 5.6 gm/dL (6.4-8.2)
[2021-01-17 06:11] LABS: BUN 44 mg/dl (7-24); CPK 32 U/L (26-192)
[2021-01-17 06:30] LABS: HEMATOCRIT 32.4 % (37.0-47.0); MEAN CELL VOLUME 97.9 fl (81.0-99.0); MEAN CORPUSCULAR HGB 26.6 pg (27.0-31.0); MEAN CORPUSCULAR HGB CONC 27.2 g/dl (33.0-37.0); MEAN PLATELET VOLUME 11.7 fl (9.6-12.3); PLATELET COUNT AUTOMATED 209 10*3/uL (130-400); RED BLOOD COUNT 3.31 10*6/uL (4.10-5.10); RED CELL DISTRI WIDTH 17.8 % (0-14.5); WHITE BLOOD COUNT 7.5 10*3/uL (4.8-10.8)
[2021-01-17 07:04] LABS: POLYCHROMASIA SLIGHT; TOTAL CELLS COUNTED 100 #CELLS
[2021-01-17 07:05] LABS: PLATELET SUFFICIENCY NORMAL (NORMAL); STOMATOCYTE FEW
[2021-01-17 08:00] VITALS: BP 116/64
[2021-01-17 12:00] VITALS: BP 131/82
[2021-01-17 16:00] VITALS: BP 125/54
[2021-01-17 20:00] VITALS: BP 131/52
[2021-01-18] VITALS (28 sets, daily range): BP systolic 68–177; BP diastolic 25–113
[2021-01-18 06:04] LABS: ALBUMIN 2.4 gm/dl (3.1-4.5); ALKALINE PHOSPHATASE 61 U/L (45-117); BUN 48 mg/dl (7-24); CHLORIDE 107 mmol/L (98-107); CPK 26 U/L (26-192); CREATININE 0.52 mg/dL (0.55-1.02); LDH 111 U/L (84-246); POTASSIUM 4.4 mmol/L (3.5-5.1); SGOT/AST 5 IU/L (3-35); SGPT/ALT 20 U/L (12-78); SODIUM 146 mmol/L (136-145); TOTAL PROTEIN 5.9 gm/dL (6.4-8.2)
[2021-01-18 06:05] LABS: HEMATOCRIT 35.5 % (37.0-47.0); MEAN CELL VOLUME 100.6 fl (81.0-99.0); MEAN CORPUSCULAR HGB 26.1 pg (27.0-31.0); MEAN CORPUSCULAR HGB CONC 25.9 g/dl (33.0-37.0); MEAN PLATELET VOLUME 11.6 fl (9.6-12.3); PLATELET COUNT AUTOMATED 247 10*3/uL (130-400); RED BLOOD COUNT 3.53 10*6/uL (4.10-5.10); RED CELL DISTRI WIDTH 18.1 % (0-14.5); WHITE BLOOD COUNT 10.4 10*3/uL (4.8-10.8)
[2021-01-18 07:48] LABS: PLATELET SUFFICIENCY NORMAL (NORMAL); TOTAL CELLS COUNTED 100 #CELLS
[2021-01-18 09:41] LABS: ARTERIAL BLOOD GAS PH 7.251 (7.35-7.45); ARTERIAL BLOOD GAS PO2 86.5 (80-90)
[2021-01-18 15:06] LABS: ABG BASE EXCESS 21.5 mmol/L (-2.0-2.0); ARTERIAL BLOOD GAS PH 7.257 (7.35-7.45); ARTERIAL BLOOD GAS PO2 70.8 (80-90)
[2021-01-18 17:33] LABS: ABG BASE EXCESS 24.5 mmol/L (-2.0-2.0); ARTERIAL BLOOD GAS PH 7.269 (7.35-7.45); ARTERIAL BLOOD GAS PO2 81.3 (80-90)
[2021-01-18 18:52] LABS: INTERNATIONAL NORM RATIO 1.3 (2.0-3.5)
[2021-01-18 20:39] LABS: ABG BASE EXCESS 5.8 mmol/L (-2.0-2.0); ARTERIAL BLOOD GAS PH 7.209 (7.35-7.45); ARTERIAL BLOOD GAS PO2 332.9 (80-90)
[2021-01-18 22:34] LABS: ABG BASE EXCESS 2.4 mmol/L (-2.0-2.0); ARTERIAL BLOOD GAS PH 7.327 (7.35-7.45); ARTERIAL BLOOD GAS PO2 90.7 (80-90)
[2021-01-19] VITALS (96 sets, daily range): BP systolic 87–198; BP diastolic 29–91
[2021-01-19 05:16] LABS: CREATININE 1.24 mg/dL (0.55-1.02); POTASSIUM 4.2 mmol/L (3.5-5.1)
[2021-01-19 06:41] LABS: HEMATOCRIT 29.4 % (37.0-47.0); MEAN CORPUSCULAR HGB CONC 27.6 g/dl (33.0-37.0); MEAN PLATELET VOLUME 12.2 fl (9.6-12.3); NUCLEATED RED BLOOD CELL 0.4 10*3/uL (0.0-0.0); PLATELET COUNT AUTOMATED 217 10*3/uL (130-400); RED CELL DISTRI WIDTH 18.6 % (0-14.5)
[2021-01-19 07:31] LABS: TOTAL CELLS COUNTED 100 #CELLS
[2021-01-19 07:32] LABS: PLATELET SUFFICIENCY NORMAL (NORMAL); POLYCHROMASIA SLIGHT; TARGET CELLS FEW
[2021-01-19 07:49] LABS: ABG BASE EXCESS 7.3 mmol/L (-2.0-2.0); ARTERIAL BLOOD GAS PH 7.429 (7.35-7.45); ARTERIAL BLOOD GAS PO2 74.5 (80-90)
[2021-01-19 15:59] LABS: ABG BASE EXCESS 11.4 mmol/L (-2.0-2.0); ARTERIAL BLOOD GAS PH 7.41 (7.35-7.45); ARTERIAL BLOOD GAS PO2 86.3 (80-90)
[2021-01-20] VITALS (95 sets, daily range): BP systolic 66–156; BP diastolic 31–97
[2021-01-20 07:38] LABS: HEMATOCRIT 22.4 % (37.0-47.0); MEAN CORPUSCULAR HGB 26.9 pg (27.0-31.0); MEAN CORPUSCULAR HGB CONC 28.6 g/dl (33.0-37.0); MEAN PLATELET VOLUME 12.1 fl (9.6-12.3); NUCLEATED RED BLOOD CELL 0.1 10*3/uL (0.0-0.0); NUCLEATED RED BLOOD CELL 0.5 % (0.0-0.0); RED BLOOD COUNT 2.38 10*6/uL (4.10-5.10); RED CELL DISTRI WIDTH 20.1 % (0-14.5); WHITE BLOOD COUNT 13.1 10*3/uL (4.8-10.8)
[2021-01-20 07:42] LABS: ABG BASE EXCESS 8.9 mmol/L (-2.0-2.0); ARTERIAL BLOOD GAS PH 7.455 (7.35-7.45); ARTERIAL BLOOD GAS PO2 156.8 (80-90)
[2021-01-20 07:42] LABS: MEAN CELL VOLUME 94.1 fl (81.0-99.0); PLATELET COUNT AUTOMATED 133 10*3/uL (130-400)
[2021-01-20 07:48] LABS: ALBUMIN 1.7 gm/dl (3.1-4.5); CREATININE 1.36 mg/dL (0.55-1.02); TOTAL PROTEIN 4.6 gm/dL (6.4-8.2)
[2021-01-20 08:12] LABS: OVALOCYTES FEW; PLATELET SUFFICIENCY NORMAL (NORMAL); POLYCHROMASIA SLIGHT; TOTAL CELLS COUNTED 100 #CELLS
[2021-01-20 08:13] LABS: TARGET CELLS FEW
[2021-01-21] VITALS (71 sets, daily range): BP systolic 90–165; BP diastolic 34–100
[2021-01-21 06:28] LABS: ALBUMIN 1.6 gm/dl (3.1-4.5); ALKALINE PHOSPHATASE 68 U/L (45-117); CHLORIDE 107 mmol/L (98-107); CREATININE 1.05 mg/dL (0.55-1.02); LDH 253 U/L (84-246); POTASSIUM 3.5 mmol/L (3.5-5.1); SGOT/AST 14 IU/L (3-35); SGPT/ALT 34 U/L (12-78); SODIUM 145 mmol/L (136-145)
[2021-01-21 06:42] LABS: BUN 40 mg/dl (7-24); CPK 26 U/L (26-192); HEMATOCRIT 26.7 % (37.0-47.0); MEAN CORPUSCULAR HGB 27.2 pg (27.0-31.0); MEAN CORPUSCULAR HGB CONC 30.7 g/dl (33.0-37.0); MEAN PLATELET VOLUME 12.6 fl (9.6-12.3); PLATELET COUNT AUTOMATED 133 10*3/uL (130-400); RED BLOOD COUNT 3.01 10*6/uL (4.10-5.10); RED CELL DISTRI WIDTH 20.1 % (0-14.5); WHITE BLOOD COUNT 14.2 10*3/uL (4.8-10.8)
[2021-01-21 06:46] LABS: MEAN CELL VOLUME 88.7 fl (81.0-99.0)
[2021-01-21 07:32] LABS: TOTAL CELLS COUNTED 100 #CELLS
[2021-01-21 07:33] LABS: OVALOCYTES FEW; PLATELET SUFFICIENCY NORMAL (NORMAL); STOMATOCYTE FEW; TARGET CELLS FEW
[2021-01-21 07:34] LABS: POLYCHROMASIA SLIGHT
[2021-01-21 09:27] LABS: ABG BASE EXCESS 7.8 mmol/L (-2.0-2.0); ARTERIAL BLOOD GAS PH 7.459 (7.35-7.45); ARTERIAL BLOOD GAS PO2 102.4 (80-90)
[2021-01-21 20:59] LABS: ABG BASE EXCESS 4.9 mmol/L (-2.0-2.0); ARTERIAL BLOOD GAS PH 7.279 (7.35-7.45); ARTERIAL BLOOD GAS PO2 78.9 (80-90)
[2021-01-22] VITALS (38 sets, daily range): BP systolic 75–160; BP diastolic 33–71
[2021-01-22 06:11] LABS: ALBUMIN 1.5 gm/dl (3.1-4.5); BUN 38 mg/dl (7-24); CHLORIDE 108 mmol/L (98-107); CREATININE 0.97 mg/dL (0.55-1.02); POTASSIUM 3.2 mmol/L (3.5-5.1); SGOT/AST 9 IU/L (3-35); SGPT/ALT 26 U/L (12-78); SODIUM 144 mmol/L (136-145)
[2021-01-22 06:12] LABS: ALKALINE PHOSPHATASE 59 U/L (45-117); TOTAL PROTEIN 4.6 gm/dL (6.4-8.2)
[2021-01-22 06:32] LABS: MEAN CORPUSCULAR HGB 27.4 pg (27.0-31.0); MEAN CORPUSCULAR HGB CONC 29.2 g/dl (33.0-37.0); MEAN PLATELET VOLUME 12.6 fl (9.6-12.3); NUCLEATED RED BLOOD CELL 0.2 % (0.0-0.0); PLATELET COUNT AUTOMATED 113 10*3/uL (130-400); RED BLOOD COUNT 2.66 10*6/uL (4.10-5.10); RED CELL DISTRI WIDTH 20.2 % (0-14.5); WHITE BLOOD COUNT 12.1 10*3/uL (4.8-10.8)
[2021-01-22 06:39] LABS: PLATELET SUFFICIENCY LOW (NORMAL); TOTAL CELLS COUNTED 100 #CELLS
[2021-01-22 06:40] LABS: STOMATOCYTE FEW
[2021-01-22 10:39] LABS: ABG BASE EXCESS 4.9 mmol/L (-2.0-2.0); ARTERIAL BLOOD GAS PH 7.343 (7.35-7.45); ARTERIAL BLOOD GAS PO2 92.4 (80-90)
[2021-01-22 17:05] LABS: ABG BASE EXCESS 4.8 mmol/L (-2.0-2.0); ARTERIAL BLOOD GAS PO2 81.2 (80-90)
[2021-01-22 17:07] LABS: ARTERIAL BLOOD GAS PH 7.197 (7.35-7.45)
[2021-01-22 19:48] LABS: ABG BASE EXCESS 4.4 mmol/L (-2.0-2.0)
[2021-01-22 19:50] LABS: ARTERIAL BLOOD GAS PH 7.108 (7.35-7.45)
[2021-01-22 22:22] LABS: ABG BASE EXCESS 5.2 mmol/L (-2.0-2.0); ARTERIAL BLOOD GAS PO2 94.1 (80-90)
[2021-01-22 22:23] LABS: ARTERIAL BLOOD GAS PH 7.116 (7.35-7.45)
[2021-01-23] VITALS (7 sets, daily range): BP systolic 103–147; BP diastolic 37–100
[2021-01-23 13:26] LABS: CREATININE 1.32 mg/dL (0.55-1.02)
[2021-01-23 13:30] LABS: POTASSIUM 4.5 mmol/L (3.5-5.1)
[2021-01-24] VITALS: BP 121/31
[2021-01-24 04:00] VITALS: BP 134/38
[2021-01-24 05:32] LABS: CREATININE 1.49 mg/dL (0.55-1.02); POTASSIUM 5.1 mmol/L (3.5-5.1)
[2021-01-24 06:37] LABS: BASO % 0.2 % (0.0-1.0); HEMATOCRIT 30.7 % (37.0-47.0); LYMPH # 0.3 10*3/uL (1.3-4.4); LYMPH % 2.1 % (27.0-41.0); MEAN CORPUSCULAR HGB 27.5 pg (27.0-31.0); MEAN PLATELET VOLUME 12.4 fl (9.6-12.3); MONO # 0.9 10*3/uL (0.1-1.0); MONO % 7.5 % (3.0-9.0); NEUT # 10.8 10*3/uL (2.3-7.9); NEUT % 88.6 % (47.0-73.0); NUCLEATED RED BLOOD CELL 0.1 10*3/uL (0.0-0.0); NUCLEATED RED BLOOD CELL 0.4 % (0.0-0.0); PLATELET COUNT AUTOMATED 113 10*3/uL (130-400); RED BLOOD COUNT 3.02 10*6/uL (4.10-5.10); RED CELL DISTRI WIDTH 19.5 % (0-14.5); WHITE BLOOD COUNT 12.1 10*3/uL (4.8-10.8)
[2021-01-24 06:42] LABS: MEAN CELL VOLUME 101.7 fl (81.0-99.0)
[2021-01-24 08:00] VITALS: BP 105/26
[2021-01-24 12:00] VITALS: BP 109/22
[2021-01-24 13:49] VITALS: BP 79/19
== END 2021-01-24 16:50 | DRG 208 ==
LOC: ICCU 18:31 → 5E 18:31 → 4E 01-11 15:57 → ICCU 01-15 08:58
PROVIDERS: Internal Medicine; Internal Medicine Critical Care Medicine; Student in an Organized Health Care Education/Training Program; ADMIT Internal Medicine; ATTEND Internal Medicine
PROC: 30233N1 Transfusion of Nonautologous Red Blood Cells into Peripheral Vein, Percutaneous Approach (ICD-10-PCS; principal; 2021-01-09)
PROC: XW033E5 Introduction of Remdesivir Anti-infective into Peripheral Vein, Percutaneous Approach, New Technology Group 5 (ICD-10-PCS; 2021-01-12)
PROC: 5A09357 Assistance with Respiratory Ventilation, Less than 24 Consecutive Hours, Continuous Positive Airway Pressure (ICD-10-PCS; 2021-01-12)
PROC: 5A0935A Assistance with Respiratory Ventilation, Less than 24 Consecutive Hours, High Flow/Velocity Cannula (ICD-10-PCS; 2021-01-12)
PROC: 5A09357 Assistance with Respiratory Ventilation, Less than 24 Consecutive Hours, Continuous Positive Airway Pressure (ICD-10-PCS; 2021-01-13)
PROC: 5A0935A Assistance with Respiratory Ventilation, Less than 24 Consecutive Hours, High Flow/Velocity Cannula (ICD-10-PCS; 2021-01-13)
PROC: 5A09357 Assistance with Respiratory Ventilation, Less than 24 Consecutive Hours, Continuous Positive Airway Pressure (ICD-10-PCS; 2021-01-14)
PROC: 5A0935A Assistance with Respiratory Ventilation, Less than 24 Consecutive Hours, High Flow/Velocity Cannula (ICD-10-PCS; 2021-01-14)
PROC: 5A09357 Assistance with Respiratory Ventilation, Less than 24 Consecutive Hours, Continuous Positive Airway Pressure (ICD-10-PCS; 2021-01-15)
PROC: 5A09357 Assistance with Respiratory Ventilation, Less than 24 Consecutive Hours, Continuous Positive Airway Pressure (ICD-10-PCS; 2021-01-16)
PROC: 5A0945A Assistance with Respiratory Ventilation, 24-96 Consecutive Hours, High Flow/Velocity Cannula (ICD-10-PCS; 2021-01-17)
PROC: 5A1935Z Respiratory Ventilation, Less than 24 Consecutive Hours (ICD-10-PCS; 2021-01-18)
PROC: 0BH17EZ Insertion of Endotracheal Airway into Trachea, Via Natural or Artificial Opening (ICD-10-PCS; 2021-01-18)
PROC: 5A09357 Assistance with Respiratory Ventilation, Less than 24 Consecutive Hours, Continuous Positive Airway Pressure (ICD-10-PCS; 2021-01-18)
PROC: 5A1945Z Respiratory Ventilation, 24-96 Consecutive Hours (ICD-10-PCS; 2021-01-19)
PROC: 02HV33Z Insertion of Infusion Device into Superior Vena Cava, Percutaneous Approach (ICD-10-PCS; 2021-01-19)
PROC: B548ZZA Ultrasonography of Superior Vena Cava, Guidance (ICD-10-PCS; 2021-01-19)
PROC: 5A09457 Assistance with Respiratory Ventilation, 24-96 Consecutive Hours, Continuous Positive Airway Pressure (ICD-10-PCS; 2021-01-22)
PROC: 5A0935A Assistance with Respiratory Ventilation, Less than 24 Consecutive Hours, High Flow/Velocity Cannula (ICD-10-PCS; 2021-01-24)
DX: U07.1 COVID-19 (principal); A41.89 Other specified sepsis; J12.82 Pneumonia due to coronavirus disease 2019; J96.21 Acute and chronic respiratory failure with hypoxia; J96.22 Acute and chronic respiratory failure with hypercapnia; R65.21 Severe sepsis with septic shock; E87.0 Hyperosmolality and hypernatremia; N39.0 Urinary tract infection, site not specified; I48.21 Permanent atrial fibrillation; J44.1 Chronic obstructive pulmonary disease with (acute) exacerbation; J44.0 Chronic obstructive pulmonary disease with (acute) lower respiratory infection; I48.92 Unspecified atrial flutter; E87.3 Alkalosis; Z66 Do not resuscitate; I11.0 Hypertensive heart disease with heart failure; D50.9 Iron deficiency anemia, unspecified; L40.9 Psoriasis, unspecified; B95.2 Enterococcus as the cause of diseases classified elsewhere; E87.5 Hyperkalemia; I25.10 Atherosclerotic heart disease of native coronary artery without angina pectoris; I50.9 Heart failure, unspecified; E03.9 Hypothyroidism, unspecified; I48.0 Paroxysmal atrial fibrillation; I95.9 Hypotension, unspecified; Z51.5 Encounter for palliative care; Z92.89 Personal history of other medical treatment; Z79.01 Long term (current) use of anticoagulants; Z87.891 Personal history of nicotine dependence; Z79.899 Other long term (current) drug therapy; Z95.5 Presence of coronary angioplasty implant and graft; Z79.51 Long term (current) use of inhaled steroids; Z68.24 Body mass index [BMI] 24.0-24.9, adult